=== PATIENT | male | born 1980 | race Caucasian/White ===

== ENCOUNTER 2017-10-15 17:37 | Outpatient (CLI) | payer OTHER | END 2017-10-15 17:38 | disposition home or self-care (01) | LOC: DI 17:37 | PROVIDERS: ATTEND Family Medicine | DX: Z53.9 Procedure and treatment not carried out, unspecified reason (principal) ==

== ENCOUNTER 2017-11-16 10:48 | Outpatient (CLI) | payer OTHER | END 2017-11-16 10:49 | disposition home or self-care (01) | LOC: SC 10:48 | PROVIDERS: ATTEND Internal Medicine Pulmonary Disease | DX: G47.10 Hypersomnia, unspecified (principal); R06.83 Snoring; G47.8 Other sleep disorders | CPT/HCPCS: 99203; 99212 ==

== ENCOUNTER 2017-11-30 09:04 | Outpatient (CLI) | payer OTHER ==
--- NOTE | 2017-11-30 12:29 | Ultrasound Report ---
Procedure Date: 11/30/2017 Accession Number: [id number] / [id number] Procedure: US - Arterial Visceral Complete CPT Code: FULL RESULT: EXAM: RENAL ARTERY DOPPLER ULTRASOUND EXAM DATE: 11/30/2017 10:38 AM. CLINICAL HISTORY: Atherosclerosis of renal artery. COMPARISON: Arterial visceral complete 10/15/2017. TECHNIQUE: Real-time sonographic vascular imaging was performed by the audit practice intern through the renal arterial system with a linear transducer utilizing color-flow, Doppler flow, and spectral analysis. Multiple charter representative static images were saved for review. FINDINGS: Expected triphasic waveforms are preserved throughout the sampled arteries. Right Kidney: 10.1 X 4.8 X 4.5 cm. Echotexture: Within normal limits. Right Segmental Artery: Upper pole: PSV 16 cm/sec, RI 0.56. Mid pole: PSV 21 cm/sec, RI 0.58. Lower pole: PSV 15 cm/sec, RI 0.53. Right Renal Artery: Origin: PSV 110 cm/sec, RA/AO 1.26. Proximal: PSV 121 cm/sec, RA/AO 1.39. Mid: PSV 127 cm/sec, RA/AO 1.46. Distal: PSV 97 cm/sec, RA/AO 1.11. Aorta PSV: 87 cm/sec. RRV Patent: Yes. Left Kidney: 9.8 X 5.4 X 4.8 cm. Echotexture: Within normal limits. Left Segmental Artery: Upper pole: PSV 25 cm/sec, RI 0.55. Mid pole: PSV 23 cm/sec, RI 0.58. Lower pole: PSV 16 cm/sec, RI 0.51. Left Renal Artery: Origin: PSV 98 cm/sec, RA/AO 1.13. Proximal: PSV 96 cm/sec, RA/AO 1.10. Mid: PSV 120 cm/sec, RA/AO 1.38. Distal: PSV 69 cm/sec, RA/AO 0.79. LRV Patent: Yes. IMPRESSION: Normal study. CRITERIA FOR CLASSIFICATION OF RENAL ARTERY (RA) DISEASE BY DUPLEX SCANNING: RA Diameter Reduction/ RA PSV/ RAR: Normal, < 180 cm/sec, < 3.5 < 60%, >= 180 cm/sec, < 3.5 >= 60%, >= 180 cm/sec, >= 3.5 Total Occlusion: Undetectable; Not applicable RADIA
== END 2017-11-30 09:05 | disposition home or self-care (01) ==
LOC: DI 09:04
PROVIDERS: ATTEND Family Medicine
DX: I70.1 Atherosclerosis of renal artery (principal)
CPT/HCPCS: 93975

== ENCOUNTER 2017-12-01 19:27 | Outpatient (CLI) | payer OTHER | END 2017-12-01 19:28 | disposition home or self-care (01) | LOC: SC 19:27 | PROVIDERS: ATTEND Internal Medicine Pulmonary Disease | DX: G47.33 Obstructive sleep apnea (adult) (pediatric) (principal) | CPT/HCPCS: 95811 ==

== ENCOUNTER 2017-12-15 14:13 | Outpatient (CLI) | payer OTHER | END 2017-12-15 14:14 | disposition home or self-care (01) | LOC: SC 14:13 | PROVIDERS: ATTEND Nurse Practitioner Family | DX: G47.33 Obstructive sleep apnea (adult) (pediatric) (principal) | CPT/HCPCS: 99212; 99214 ==

== ENCOUNTER 2018-02-17 10:37 | Outpatient (CLI) | payer OTHER | END 2018-02-17 10:38 | disposition home or self-care (01) | LOC: SC 10:37 | PROVIDERS: ATTEND Nurse Practitioner Family | DX: G47.33 Obstructive sleep apnea (adult) (pediatric) (principal); R03.0 Elevated blood-pressure reading, without diagnosis of hypertension | CPT/HCPCS: 99212; 99214 ==

== ENCOUNTER 2018-03-11 15:48 | Outpatient (CLI) | payer OTHER | END 2018-03-11 15:49 | disposition home or self-care (01) | LOC: LAB 15:48 | PROVIDERS: ATTEND Psychiatry & Neurology Psychiatry | DX: Z01.89 Encounter for other specified special examinations (principal) ==

== ENCOUNTER 2018-03-18 09:02 | Outpatient (CLI) | payer OTHER | END 2018-03-18 09:03 | disposition home or self-care (01) | LOC: SC 09:02 | PROVIDERS: ATTEND Nurse Practitioner Family | DX: G47.33 Obstructive sleep apnea (adult) (pediatric) (principal) | CPT/HCPCS: 99212; 99214 ==

== ENCOUNTER 2023-08-19 00:49 | Emergency (ER) | payer OTHER ==
[2023-08-19 01:18] LABS: BASOPHILS % (AUTO) 0.5 %; EOSINOPHILS # (AUTO) 0.2 10^3/uL (0.0-0.7); HCT - HEMATOCRIT 44.1 % (42.0-52.0); HGB - HEMOGLOBIN 15.6 g/dL (14.0-18.0); LYMPHOCYTES # (AUTO) 2.7 10^3/uL (1.5-3.5); LYMPHOCYTES % (AUTO) 43.1 %; MEAN CORPUSCULAR HEMOGLOBIN 36.9 pg (27.0-31.0); MEAN CORPUSCULAR HGB CONC 35.4 g/dL (32.0-36.0); MEAN CORPUSCULAR VOLUME 104.3 fL (80.0-94.0); MEAN PLATELET VOLUME 8.1 fL (7.4-11.4); MONOCYTES # (AUTO) 0.5 10^3/uL (0.0-1.0); MONOCYTES % (AUTO) 8.2 %; NEUTROPHILS # (AUTO) 2.9 10^3/uL (1.5-6.6); NEUTROPHILS % (AUTO) 44.7 %; PLT - PLATELET COUNT 204 10^3/uL (130-450); RED BLOOD COUNT 4.23 10^6/uL (4.70-6.10); RED CELL DISTRIBUTION WIDTH 14.7 % (12.0-15.0); WHITE BLOOD COUNT 6.4 x10^3/uL (4.8-10.8)
[2023-08-19 01:26] LABS: BILIRUBIN,URINE NEGATIVE (NEGATIVE); GLUCOSE, URINE (UA) NEGATIVE (NEGATIVE); KETONES,URINE (UA) NEGATIVE (NEGATIVE); LEUKOCYTE ESTERASE, URINE NEGATIVE (NEGATIVE); NITRITE,URINE NEGATIVE (NEGATIVE); OCCULT BLOOD,URINE NEGATIVE (NEGATIVE); PROTEIN,URINE 100 mg/dL (NEGATIVE); UROBILINOGEN,URINE 0.2 (NORMAL) E.U./dL (NORMAL)
[2023-08-19 01:28] LABS: CLARITY,URINE CLEAR (CLEAR)
[2023-08-19 01:29] LABS: ALBUMIN 4.9 g/dL (3.2-5.5); ALBUMIN/GLOBULIN RATIO 1.5 (1.0-2.2); ALKALINE PHOSPHATASE 96 IU/L (42-121); ALT ALANINE AMINOTRANSFERASE 152 IU/L (10-60); AST ASPARTATE AMINOTRANSFERASE 148 IU/L (10-42); BILIRUBIN,TOTAL 0.6 mg/dL (0.2-1.0); BUN - BLOOD UREA NITROGEN 6 mg/dL (6-20); CALCIUM 9.6 mg/dL (8.5-10.3); CARBON DIOXIDE - CO2 27 mmol/L (21-32); CHLORIDE 101 mmol/L (101-111); CREATININE 0.8 mg/dL (0.6-1.3); ETOH - ETHANOL 399.7 mg/dL; GFR - MDRD 106 (>89); GLUCOSE 104 mg/dL (74-104); POTASSIUM 3.5 mmol/L (3.5-4.5); SODIUM 141 mmol/L (135-145); TOTAL PROTEIN 8.2 g/dL (6.4-8.9)
[2023-08-19 01:34] LABS: ACETAMINOPHEN < 0.1 ug/mL; SALICYLATE < 1.5 mg/dL
[2023-08-19 01:35] LABS: BACTERIA,URINE Rare /HPF (None Seen); MUCUS,URINE Marked Strands; RBC,URINE 0-5 /HPF (0-5); SQUAMOUS EPITHELIAL CELL,UR RARE Squamous (<= Few); WBC,URINE 0-3 /HPF (0-3)
--- NOTE | 2023-08-19 01:35 | ED Physician Documentation ---
PD HPI MHE - Stated complaint Stated Complaint: SI - Chief complaint Chief Complaint: MHE - History obtained from History obtained from: Patient - Additional information Additional information: 43-year-old male with history of alcohol use disorder presents with law enforcement officers stating that he needs help. Patient called the crisis hotline stating that he wanted to kill himself and needed help. Patient on arrival denies actively wanting to kill himself, he does state that he has been going through a hard time. Reports drinking "a shit ton" of alcohol tonight, and usually drinks 1/5 of liquor daily. Last drink prior to arrival. Patient lives with his brother, but he states he does not want his brother called because he does not want his brother to know why he is in the emergency department. Review of Systems Constitutional: denies: Fever, Chills GI: denies: Abdominal Pain, Nausea, Vomiting, Constipation, Diarrhea Musculoskeletal: denies: Neck pain, Back pain, Extremity pain Neurologic: denies: Generalized weakness, Focal weakness, Numbness Psychiatric: reports: Depressed, Suicidal. denies: Homicidal, Hallucinations, Delusions, Anxiety PD PAST MEDICAL HISTORY - Past Medical History Past Medical History: Yes Cardiovascular: Hypertension - Past Surgical History Past Surgical History: Yes General: Appendectomy - Present Medications Home Medications: Ambulatory Orders Medication Instructions Recorded Confirmed No Known Home Medications 08/19/23 08/19/23 - Allergies Allergies/Adverse Reactions: Allergies Allergy/AdvReac Type Severity Reaction Status Date / Time No Known Drug Allergies Allergy Verified 08/19/23 01:09 - Social History Does the pt smoke?: No Smoking Status: Never smoker Does the pt drink ETOH?: Yes Does the pt have substance abuse?: No PD ED PE NORMAL - Vitals Vital signs reviewed: Yes - General General: Alert and oriented X 3, No acute distress, Other (hygiene poor) - HEENT HEENT: Atraumatic - Cardiac Cardiac: Other (tachycardia, regular rhythm) - Respiratory Respiratory: No respiratory distress - Abdomen Abdomen: Soft, Non tender, Non distended - Derm Derm: Normal color, Warm and dry - Extremities Extremities: No deformity, No tenderness to palpate, Normal ROM s pain - Neuro Neuro: Alert and oriented X 3, shipping and receiving operator 2-12 intact, No motor deficit, Normal speech Results - Vitals Vitals: Vital Signs - 24 hr 08/19/23 00:52 Temperature 36.6 C Heart Rate 113 H Respiratory 18 Rate Blood Pressure 176/128 H O2 Saturation 97 Oxygen O2 Source Room air - Labs Labs: Laboratory Tests 08/19/23 08/19/23 08/19/23 01:07 01:07 01:11 WBC 6.4 RBC 4.23 L Hgb 15.6 Hct 44.1 MCV 104.3 H MCH 36.9 H MCHC 35.4 RDW 14.7 Plt Count 204 MPV 8.1 Neut # (Auto) 2.9 Lymph # (Auto) 2.7 [place] # (Auto) 0.5 Eos # (Auto) 0.2 Baso # (Auto) 0.0 Absolute Nucleated RBC 0.00 Nucleated RBC % 0.0 Sodium 141 Potassium 3.5 Chloride 101 Carbon Dioxide 27 Anion Gap 13.0 BUN 6 Creatinine 0.8 Estimated GFR (MDRD) 106 Glucose 104 Calcium 9.6 Total Bilirubin 0.6 AST 148 H ALT 152 H Alkaline Phosphatase 96 Total Protein 8.2 Albumin 4.9 Globulin 3.3 Albumin/Globulin Ratio 1.5 Urine Color Urine Clarity Urine pH Ur Specific [place] Urine Protein Urine Glucose (UA) Urine Ketones Urine Occult Blood Urine Nitrite Urine Bilirubin Urine Urobilinogen Ur Leukocyte Esterase Urine RBC Urine WBC Ur Squamous Epith Cells Urine Bacteria Urine Mucus Ur Microscopic Review Urine Culture Comments Salicylates < 1.5 Urine Opiates Screen Ur Buprenorphine Scrn Ur Oxycodone Screen Urine Methadone Screen Acetaminophen < 0.1 Ur Barbiturates Screen Ur Tricyclics Screen Ur Phencyclidine Scrn Ur Amphetamine Screen U Methamphetamines Scrn U Benzodiazepines Scrn Urine Cocaine Screen U Cannabinoids Screen Ur Drug Screen Comment Ethyl Alcohol 399.7 SARS-CoV-2 (PCR) NOT DETECTED 08/19/23 01:11 WBC RBC Hgb Hct MCV MCH MCHC RDW Plt Count MPV Neut # (Auto) Lymph # (Auto) [place] # (Auto) Eos # (Auto) Baso # (Auto) Absolute Nucleated RBC Nucleated RBC % Sodium Potassium Chloride Carbon Dioxide Anion Gap BUN Creatinine Estimated GFR (MDRD) Glucose Calcium Total Bilirubin AST ALT Alkaline Phosphatase Total Protein Albumin Globulin Albumin/Globulin Ratio Urine Color DARK YELLOW Urine Clarity CLEAR Urine pH 6.0 Ur Specific [place] >=1.030 H Urine Protein 100 H Urine Glucose (UA) NEGATIVE Urine Ketones NEGATIVE Urine Occult Blood NEGATIVE Urine Nitrite NEGATIVE Urine Bilirubin NEGATIVE Urine Urobilinogen 0.2 (NORMAL) Ur Leukocyte Esterase NEGATIVE Urine RBC 0-5 Urine WBC 0-3 Ur Squamous Epith Cells RARE Squamous Urine Bacteria Rare Urine Mucus Marked Strands Ur Microscopic Review INDICATED Urine Culture Comments NOT INDICATED Salicylates Urine Opiates Screen NEGATIVE Ur Buprenorphine Scrn NEGATIVE Ur Oxycodone Screen NEGATIVE Urine Methadone Screen NEGATIVE Acetaminophen Ur Barbiturates Screen NEGATIVE Ur Tricyclics Screen NEGATIVE Ur Phencyclidine Scrn NEGATIVE Ur Amphetamine Screen NEGATIVE U Methamphetamines Scrn NEGATIVE U Benzodiazepines Scrn NEGATIVE Urine Cocaine Screen NEGATIVE U Cannabinoids Screen NEGATIVE Ur Drug Screen Comment CUTOFF CONC BELOW: Ethyl Alcohol SARS-CoV-2 (PCR) PD Medical Decision Making - ED course Complexity details: reviewed results, re-evaluated patient, considered differential, d/w patient ED course: Patient presenting after calling crisis hotline stating that he went to kill himself. On arrival patient states that he has been going through a hard time and has been down and depressed but does not actively want to kill himself. Heavy alcohol use tonight per patient report, however he does not appear to be overly intoxicated. Laboratory work is reviewed, elevated liver enzymes consistent with history of alcohol use disorder. Alcohol level 399.7. He has been given thiamine and folic acid. Patient reassessed, he continues to deny active suicidal thoughts but does state that he came here seeking help. He cannot articulate what help he is here to seek. I asked if patient felt safe at home and he said yes, but he again stated that he did not want his brother to know why he was in the emergency department. I asked if patient wanted therapy resources, he stated "honestly I will commit suicide before I go to therapy". Telepsychiatry will not see patient unless blood alcohol level less than 150. Patient given p.o. Ativan after requesting something to help him sleep. At the time of shift change he is not tremulous, tachycardic, diaphoretic, and does not appear to be actively withdrawing. Repeat alcohol level ordered for later date. Care of patient to be signed out to morning doctor Departure - Departure Forms: PCP List
[2023-08-19 01:36] LABS: AMPHETAMINE SCREEN,URINE NEGATIVE (NEGATIVE); BARBITURATE SCREEN,UR NEGATIVE (NEGATIVE); BENZODIAZEPINES SCREEN, URINE NEGATIVE (NEGATIVE); BUPRENORPHINE SCREEN, URINE NEGATIVE (NEGATIVE); COCAINE SCREEN URINE NEGATIVE (NEGATIVE); METHADONE SCREEN, URINE NEGATIVE (NEGATIVE); METHAMPHETAMINES SCREEN, URINE NEGATIVE (NEGATIVE); OPIATE SCREEN, URINE NEGATIVE (NEGATIVE); OXYCODONE SCREEN, URINE NEGATIVE (NEGATIVE); THC CANNABINOID SCREEN, URINE NEGATIVE (NEGATIVE); TRICYCLIC ANTIDEPRESSANT,URINE NEGATIVE (NEGATIVE)
[2023-08-19] MEDS: FOLIC ACID 1 MG TABLET PO ONE (01:39)
[2023-08-19] MEDS: THIAMINE 100 MG TABLET PO STA (01:39)
[2023-08-19] MEDS: LORazepam 1 MG TABLET PO STA ×2 (02:20→19:33)
--- NOTE | 2023-08-19 12:48 | ED Physician Documentation ---
ED Addendum - Addendum Addendum: 08/19/23 12:46 The patient has been calm here this morning. He states he has not had any withdrawal symptoms as yet. He does anticipate it later this afternoon as it had been the timing with prior episodes of withdrawal. He states he will let us know if he gets more symptoms at this point he did not prefer any medications. He had some mild nausea but did not want any ondansetron or oral medicine. I did offer him a alcohol prep pad to inhale and told him that that actually is a valid and current treatment for nausea. We had estimated his blood alcohol drifting down and repeated blood test aiming for a level of 150 which was the level previously telepsych said they needed to be below for evaluation. However will recall the with a level of 143 they said no it needed to be below 80. Social work will see him below 80 as well. I reestimated his blood alcohol point at which she would be below 80 and we redrew his labs. Pending that result at this point. Assuming he is at that level, we will have social work evaluate. He is denying suicidal ideation or intention at this point. I think he may reasonably be able to be safety plan but would need to start on some referral for counseling and such as he states depression has been an ongoing issue.
[2023-08-19] MEDS ORDERED: LORazepam 1 MG TABLET PO PRN (17:53)
[2023-08-19] MEDS ORDERED: ACETAMINOPHEN 325 MG TABLET PO PRN (17:54)
[2023-08-19] MEDS: PHENobarbitaL 32.4 MG TABLET PO STA (18:36)
[2023-08-19] MEDS: PROMETHAZINE 25 MG TABLET PO STA (18:36)
[2023-08-19] MEDS: PHENobarbitaL 32.4 MG TABLET PO SCH (21:30)
[2023-08-19] MEDS: lisinopriL 5 MG TABLET PO STA (22:28)
[2023-08-19] MEDS: cloNIDine 0.1 MG TABLET PO STA (23:52)
--- NOTE | 2023-08-20 07:12 | ED Physician Documentation ---
ED Addendum - Addendum Addendum: 08/20/23 07:09 The patient was signed out to me at change of shift, pending final disposition after presenting to the emergency department with alcohol intoxication and suicidal ideation/intent. The patient was stable in the emergency department and mostly without complaints and was being looked at by a number of facilities. [facility] stated that they would be willing to consider him but they were concerned about his blood pressure. The patient had already been given phenobarbital and Ativan for alcohol withdrawal and had also had a dose of lisinopril 10 mg by the prior physician. The patient's blood pressure was still in the 190s/110'ss and [facility] had stated they did not want to take the patient with the pressure above 160/90. Patient was given a dose of clonidine 0.3 mg orally and did respond well to this. He was able to fall within the parameters that [facility] had set, and as such, was excepted in transfer by their medical provider. The patient was agreeable to transfer and at this time, is awaiting pickup, which should be happening shortly. Final impression: 1. Alcohol dependence 2. Alcohol withdrawal 3. Suicidal ideation Disposition: Transfer to psychiatric inpatient facility in stable condition.
[2023-08-20 08:19] VITALS: BP 106/66; O2SAT 99
--- NOTE | 2023-08-20 08:19 | ED Physician Documentation ---
ED Addendum - Addendum Addendum: Patient care assumed at shift change. Patient is awaiting transfer to [facility] for involuntary psychiatric treatment. He has been cooperative. 08/20/23 08:18 [facility] transport is here for the patient. Patient taken into their care without issue. Departure - Departure Disposition: [facility]/Unit DC/Xfer Clinical Impression: Suicidal ideation, Depressed affect, Alcohol use disorder, Alcohol intoxication, At high risk for self-harm Condition: Stable Forms: PCP List Discharge Date/Time: 08/20/23 08:32
== END 2023-08-20 08:32 ==
LOC: ED 00:49
DX: F10.239 Alcohol dependence with withdrawal, unspecified (principal); R45.851 Suicidal ideations; F32.A Depression, unspecified; I10 Essential (primary) hypertension
CPT/HCPCS: 36415; 80053; 80143; 80179; 80306; 81001; 82077; 85025; 87635; 99284; 99285; A9270; J8499; Q0169; 81003; 87086